=== PATIENT | female | born 1990 | race American Indian/Alaskan Native ===

== ENCOUNTER 2020-09-24 22:41 | Emergency (ER) | payer OTHER ==
[2020-09-24 23:55] VITALS: BP 147/96
[2020-09-25] MEDS ORDERED: KETOROLAC 60 MG/2 ML INJ IM ONE (01:25)
--- NOTE | 2020-09-25 01:31 | Emergency Department Report ---
ED Neck Pain/Injury HPI - General Chief Complaint: Neck Pain/Injury Stated Complaint: BODY PAIN/NECK/BACK/SIDE/ARM Time Seen by Provider: 09/25/20 00:58 Mode of arrival: Ambulatory Limitations: No Limitations - History of Present Illness Initial Comments: Patient is a 30-year-old female presents emergency room complaints of left-sided neck pain that radiates down her left arm that began a week ago. Patient states that she went to a walk-in clinic and was given prescription for Flexeril and states that she has been taking Tylenol and ibuprofen. She states that she is still been doing lifting at her job which she feels like is exacerbating her pain. She states that she had to leave work today secondary to her pain and needs a work excuse. She denies any fall or injury. She denies any fever, neck stiffness, nausea, vomiting, diarrhea, headache, chest pain, shortness of breath, vision changes, numbness, weakness, bowel or bladder incontinence. Past medical history of diabetes. Allergy to sulfa. - Related Data Previous Rx's Medication Instructions Recorded Last Taken Type Menthol/Camphor [[place] Asher 1 applicatio TP BID #18 oint...g. 09/25/20 Unknown Rx Ointment] traMADoL [Ultram 50 MG tab] 50 mg PO Q6HR PRN #10 tablet 09/25/20 Unknown Rx Allergies Allergy/AdvReac Type Severity Reaction Status Date / Time Sulfa (Sulfonamide Allergy Unknown Verified 09/24/20 23:54 Antibiotics) ED Review of Systems ROS: Stated complaint: BODY PAIN/NECK/BACK/SIDE/ARM Other details as noted in HPI Comment: All other systems reviewed and negative ED Past Medical Hx - Past Medical History Previous Medical History?: Yes Hx Diabetes: Yes - Surgical History Past Surgical History?: No - Medications Home Medications: Home Medications Medication Instructions Recorded Confirmed Last Taken Type Menthol/Camphor [[place] Asher 1 applicatio TP BID #18 oint...g. 09/25/20 Unknown Rx Ointment] traMADoL [Ultram 50 MG tab] 50 mg PO Q6HR PRN #10 tablet 09/25/20 Unknown Rx ED Physical Exam - General Limitations: No Limitations General appearance: alert, in no apparent distress - Head Head exam: Present: atraumatic, normocephalic - Eye Eye exam: Present: normal appearance - ENT ENT exam: Present: mucous membranes moist - Neck Neck exam: Present: normal inspection, tenderness (left sided c-spine paraspinal ttp, no midline C-spine ttp, no step offs, no deformities ), full ROM. Absent: meningismus - Respiratory Respiratory exam: Present: normal lung sounds bilaterally. Absent: respiratory distress, wheezes, rales, rhonchi, stridor, chest wall tenderness, accessory muscle use, decreased breath sounds, prolonged expiratory - Cardiovascular Cardiovascular Exam: Present: regular rate, normal rhythm, normal heart sounds. Absent: systolic murmur, diastolic murmur, rubs, gallop - Neurological Exam Neurological exam: Present: alert, oriented X3, CN II-XII intact, normal gait. Absent: motor sensory deficit - Psychiatric Psychiatric exam: Present: normal affect, normal mood - Skin Skin exam: Present: warm, dry, intact ED Course Vital Signs 09/24/20 23:54 Temperature 98.3 F Pulse Rate 108 H Respiratory 16 Rate Blood Pressure 147/96 O2 Sat by Pulse 100 Oximetry ED Medical Decision Making - Medical Decision Making Patient is a 30-year-old female presents emergency room complaints of left-sided neck pain that radiates down her left arm that began a week ago. Patient states that she went to a walk-in clinic and was given prescription for Flexeril and states that she has been taking Tylenol and ibuprofen. She states that she is still been doing lifting at her job which she feels like is exacerbating her pain. She states that she had to leave work today secondary to her pain and needs a work excuse. She denies any fall or injury. She denies any fever, neck stiffness, nausea, vomiting, diarrhea, headache, chest pain, shortness of breath, vision changes, numbness, weakness, bowel or bladder incontinence. Past medical history of diabetes. Allergy to sulfa. Initial vitals with mild tachycardia which improved blood review. On exam:left sided c-spine paraspinal ttp, no midline C-spine ttp, no step offs, no deformities, no focal neuro deficits. Examination appears most consistent with cervical radiculopathy versus muscle strain. Patient given medication while in the emergency department with improvement of her symptoms. Given that patient is diabetic and dependent on insulin, will avoid steroid use at this time. Patient given p rescription for medications. Advised patient Please use medication as prescribed. Do not drive or operate machinery while taking severe pain medication. May use ice pack, heating pad, rest, epsom salt bath. Do not use [place] balm while using heat or ice. Please continue taking medication you are prescribed during your clinic visit. Follow-up with your primary care doctor. Follow-up with a spine doctor. Return to emergency room for new or worse symptoms. Critical care attestation.: If time is entered above; I have spent that time in minutes in the direct care of this critically ill patient, excluding procedure time. ED Disposition Clinical Impression: Neck pain Disposition: DC- TO HOME OR SELFCARE Is pt being admited?: No Does the pt Need Aspirin: No Condition: Stable Instructions: Cervical Radiculopathy Additional Instructions: Please use medication as prescribed. Do not drive or operate machinery while taking severe pain medication. May use ice pack, heating pad, rest, epsom salt bath. Do not use [place] balm while using heat or ice. Please continue taking medication you are prescribed during your clinic visit. Follow-up with your primary care doctor. Follow-up with a spine doctor. Return to emergency room for new or worse symptoms. Prescriptions: Menthol/Camphor [[place] Asher Ointment] 1 applicatio TP BID #18 oint...g. traMADoL [Ultram 50 MG tab] 50 mg PO Q6HR PRN #10 tablet PRN Reason: Pain , Severe (7-10) Referrals: BRIGIDA MCINTYRE II, MD [Staff Physician] - 3-5 Days your, primary care doctor [Other] - 3-5 Days Forms: Work/School Release Form(ED) Time of Disposition: :29 Print Language: GUATEMAL[place]
== END 2020-09-25 02:00 | disposition home or self-care (01) ==
LOC: ED 22:41
DX: M54.2 Cervicalgia (principal); E11.9 Type 2 diabetes mellitus without complications; Z79.899 Other long term (current) drug therapy; Z88.2 Allergy status to sulfonamides
CPT/HCPCS: 96372; 99282; J1885